=== PATIENT | female | born 1965 | race African-American/Black ===

== ENCOUNTER 2016-11-26 04:10 | Emergency (ER) | payer MEDICARE ==
[~2016-11-26] VITALS: Ht 170.2 cm; Wt 57.0 kg
[~2016-11-26 04:10] MED LIST: CLONIDINE; QUET25TA
[2016-11-26 05:45] VITALS: BP 119/72
== END 2016-11-26 11:03 | disposition home or self-care (01) ==
LOC: ER 04:13
DX: G89.29 Other chronic pain (principal); J45.909 Unspecified asthma, uncomplicated; Z59.0 Homelessness; Z88.0 Allergy status to penicillin
CPT/HCPCS: 99283

== ENCOUNTER 2016-11-30 00:01 | Emergency (ER) | payer MEDICARE ==
[~2016-11-30] VITALS: Ht 170.2 cm; Wt 57.0 kg
[2016-11-30] MEDS ORDERED: ACETAMINOPHEN WITH CODEINE 300/30MG TABLET PO ONE (03:00)
[2016-11-30 07:43] VITALS: BP 110/72
== END 2016-11-30 10:34 | disposition home or self-care (01) ==
LOC: ER 00:01
DX: M25.562 Pain in left knee (principal); Z59.0 Homelessness; Z88.0 Allergy status to penicillin; Z79.899 Other long term (current) drug therapy; F17.200 Nicotine dependence, unspecified, uncomplicated; M25.561 Pain in right knee; M25.552 Pain in left hip; M25.551 Pain in right hip
CPT/HCPCS: 99283

== ENCOUNTER 2016-12-23 00:06 | Emergency (ER) | payer MEDICARE ==
[~2016-12-23] VITALS: Ht 170.2 cm; Wt 56.0 kg
[2016-12-23] MEDS ORDERED: IBUPROFEN 800MG TABLET PO ONE (06:45)
[2016-12-23 09:10] VITALS: BP 138/79
== END 2016-12-23 10:03 | disposition home or self-care (01) ==
LOC: ER 00:06
DX: M25.552 Pain in left hip (principal); M25.561 Pain in right knee; M79.671 Pain in right foot; Z59.0 Homelessness; Z88.0 Allergy status to penicillin; R03.0 Elevated blood-pressure reading, without diagnosis of hypertension; F31.9 Bipolar disorder, unspecified; F20.9 Schizophrenia, unspecified; F17.210 Nicotine dependence, cigarettes, uncomplicated
CPT/HCPCS: 73502; 73562; 73630; 99284

== ENCOUNTER 2017-02-22 19:52 | Emergency (ER) | payer MEDICARE ==
[~2017-02-22] VITALS: Ht 170.2 cm; Wt 59.0 kg
[2017-02-23] MEDS ORDERED: IBUPROFEN 600MG TABLET PO ONE (04:45)
[2017-02-23 14:10] VITALS: BP 150/92
== END 2017-02-23 15:52 | disposition home or self-care (01) ==
LOC: ER 20:31
DX: F41.0 Panic disorder [episodic paroxysmal anxiety] (principal); M25.511 Pain in right shoulder; Z88.0 Allergy status to penicillin; F31.9 Bipolar disorder, unspecified; F17.200 Nicotine dependence, unspecified, uncomplicated
CPT/HCPCS: 73030; 73110; 99284

== ENCOUNTER 2017-06-23 02:09 | Emergency (ER) | payer MEDICARE ==
[~2017-06-23] VITALS: Ht 170.2 cm; Wt 56.0 kg
[2017-06-23 02:51] VITALS: BP 149/96
[2017-07-24] MEDS ORDERED: CLIN300C3 PO (12:05)
== END 2017-06-23 06:00 | disposition left against medical advice (07) ==
LOC: ER 03:09
DX: M79.662 Pain in left lower leg (principal); Z53.21 Procedure and treatment not carried out due to patient leaving prior to being seen by health care provider

== ENCOUNTER 2017-06-23 07:20 | Emergency (ER) | payer MEDICARE ==
[~2017-06-23] VITALS: Ht 170.2 cm; Wt 57.0 kg
[2017-06-23] MEDS ORDERED: TETANUS, DIPHTHERIA, PERTUSSIS VAC/PF 0.5ML (>7YR OLD) IM ONE (09:15)
[2017-06-23] MEDS ORDERED: IBUPROFEN 800MG TABLET PO ONE (09:15)
[2017-06-23] MEDS ORDERED: LIDOCAINE HCL 1% 20ML VIAL (Pyxis) INJ INFIL ONE (11:00)
[2017-06-23 12:04] VITALS: BP 149/93
[2017-07-24] MEDS ORDERED: CLIN300C3 PO (12:05)
== END 2017-06-23 12:31 | disposition home or self-care (01) ==
LOC: ER 08:02
DX: S80.02XA Contusion of left knee, initial encounter (principal); R03.0 Elevated blood-pressure reading, without diagnosis of hypertension; W10.1XXA Fall (on)(from) sidewalk curb, initial encounter; Y93.01 Activity, walking, marching and hiking; Y92.480 Sidewalk as the place of occurrence of the external cause; Z98.890 Other specified postprocedural states; Z23 Encounter for immunization; Z88.0 Allergy status to penicillin; Z72.0 Tobacco use; F41.9 Anxiety disorder, unspecified
CPT/HCPCS: 73562; 90471; 90715; 99284

== ENCOUNTER 2017-07-31 13:44 | Emergency (ER) | payer MEDICARE ==
[~2017-07-31] VITALS: Ht 165.1 cm; Wt 60.0 kg
[~2017-07-31 13:44] MED LIST changes: +CLIN300C3 PO
[2017-07-31 16:57] VITALS: BP 110/88
== END 2017-07-31 17:30 | disposition home or self-care (01) ==
LOC: ER 13:54
DX: L03.116 Cellulitis of left lower limb (principal); F41.9 Anxiety disorder, unspecified; F31.9 Bipolar disorder, unspecified; F17.200 Nicotine dependence, unspecified, uncomplicated; Z88.0 Allergy status to penicillin; Z88.8 Allergy status to other drugs, medicaments and biological substances
CPT/HCPCS: 73610; 99284

== ENCOUNTER 2017-08-22 00:38 | Emergency (ER) | payer MEDICARE ==
[~2017-08-22] VITALS: Ht 172.7 cm; Wt 58.0 kg
[2017-08-22] MEDS ORDERED: ACETAMINOPHEN 325MG TABLET PO ONE (06:15)
[2017-08-22] MEDS ORDERED: METOCLOPRAMIDE HCL 10MG TABLET PO ONE (06:30)
[2017-08-22 08:30] VITALS: BP 128/81
== END 2017-08-22 08:45 | disposition home or self-care (01) ==
LOC: ER 00:38
DX: L03.116 Cellulitis of left lower limb (principal); R51 Headache; F41.9 Anxiety disorder, unspecified; F17.200 Nicotine dependence, unspecified, uncomplicated; Z88.0 Allergy status to penicillin
CPT/HCPCS: 99283; J8597

== ENCOUNTER 2018-06-13 00:57 | Emergency (ER) | payer BC, MEDICARE ==
[~2018-06-13] VITALS: Ht 170.2 cm; Wt 73.0 kg
[2018-06-13] MEDS ORDERED: KETOROLAC 60MG/2ML VIAL IM STA (01:57)
[2018-06-13 03:51] LABS: BASOPHILS % 0.8 % (0.0-2.0); EOSINOPHILS % 0.6 % (0.0-5.0); HEMOGLOBIN. 12.1 g/dL (12.0-16.0); LYMPHOCYTES % 54.3 % (20.0-50.0); MEAN CORPUSCULAR HEMOGLOBIN 24.9 pg (28.0-32.0); MEAN PLATELET VOLUME 7.3 fl (7.4-10.4); MONOCYTES % 9.2 % (2.0-8.0); NEUTROPHILS % 35.1 % (40.0-76.0); PLATELET 204 x1000/uL (130-400); RED BLOOD CELL COUNT 4.87 mill/uL (4.2-5.4); RED CELL DISTRIBUTION WIDTH 14.4 % (11.6-14.6)
[2018-06-13 03:58] LABS: CHLORIDE 108 mEq/L (98-107)
[2018-06-13 04:03] LABS: ETHANOL BLOOD < 10 mg/dL
[2018-06-13 07:14] LABS: CLARITY URINE CLEAR (CLEAR); COLOR URINE YELLOW (YELLOW); KETONES URINE TRACE (NEGATIVE); LEUKOCYTE ESTERASE URINE NEGATIVE (NEGATIVE); NITRITE URINE NEGATIVE (NEGATIVE); OCCULT BLOOD URINE NEGATIVE (NEGATIVE); PROTEIN URINE NEGATIVE (NEGATIVE); SPECIFIC GRAVITY URINE 1.025 (1.005-1.030); UROBILINOGEN URINE 0.2 E.U./dL (0.2-1.0)
[2018-06-13 07:35] LABS: *AMPHETAMINES SCREEN URINE NEGATIVE (NEGATIVE)
[2018-06-13 07:37] LABS: *BARBITURATES SCREEN URINE NEGATIVE (NEGATIVE); *BENZODIAZEPINES SCREEN URINE NEGATIVE (NEGATIVE); *COCAINE SCREEN URINE NEGATIVE (NEGATIVE); CANNABINOID URINE SCREEN NEGATIVE (NEGATIVE); METHADONE URINE SCREEN NEGATIVE (NEGATIVE); OPIATES URINE SCREEN NEGATIVE (NEGATIVE); PHENCYCLIDINE URINE SCREEN NEGATIVE (NEGATIVE)
[2018-06-13 13:03] VITALS: BP 132/71
== END 2018-06-13 13:05 | disposition home or self-care (01) ==
LOC: ER 00:57
DX: S00.93XA Contusion of unspecified part of head, initial encounter (principal); M54.5 Low back pain; M25.561 Pain in right knee; G89.29 Other chronic pain; I10 Essential (primary) hypertension; F20.9 Schizophrenia, unspecified; F31.9 Bipolar disorder, unspecified; Z88.0 Allergy status to penicillin; Z88.6 Allergy status to analgesic agent; Z59.0 Homelessness; Y08.89XA Assault by other specified means, initial encounter; Y93.89 Activity, other specified; Y92.89 Other specified places as the place of occurrence of the external cause; Y99.8 Other external cause status
CPT/HCPCS: 36415; 80048; 80305; 80307; 80329; 81003; 85025; 96372; 99284; G0482; J1885

== ENCOUNTER 2018-06-29 23:41 | Emergency (ER) | payer BC ==
[~2018-06-29] VITALS: Ht 165.1 cm; Wt 53.0 kg
[2018-06-30 00:39] LABS: CLARITY URINE CLOUDY (CLEAR); COLOR URINE YELLOW (YELLOW); KETONES URINE NEGATIVE (NEGATIVE); LEUKOCYTE ESTERASE URINE TRACE (NEGATIVE); NITRITE URINE NEGATIVE (NEGATIVE); OCCULT BLOOD URINE NEGATIVE (NEGATIVE); PROTEIN URINE TRACE (NEGATIVE); SPECIFIC GRAVITY URINE 1.011 (1.005-1.030); UROBILINOGEN URINE 0.2 E.U./dL (0.2-1.0)
[2018-06-30] MEDS ORDERED: KETOROLAC 60MG/2ML VIAL IM ONE (02:00)
[2018-06-30] MEDS ORDERED: DIAZEPAM 5 MG TABLET PO ONE (04:00)
[2018-06-30] MEDS ORDERED: HYDROCODONE/ACETAMINOPHEN 5/325MG TABLET PO ONE (04:00)
[2018-06-30 07:26] VITALS: BP 114/79
== END 2018-06-30 07:36 | disposition home or self-care (01) ==
LOC: ER 23:41
DX: M54.5 Low back pain (principal); M79.605 Pain in left leg; F17.200 Nicotine dependence, unspecified, uncomplicated; Z88.0 Allergy status to penicillin; Z91.018 Allergy to other foods
CPT/HCPCS: 74176; 81003; 93971; 96372; 99285; J1885

== ENCOUNTER 2019-01-15 23:58 | Emergency (ER) | payer BC ==
[~2019-01-15] VITALS: Ht 172.7 cm; Wt 66.0 kg
[2019-01-16 04:53] LABS: CHLORIDE 109 mEq/L (98-107)
[2019-01-16 04:57] LABS: ETHANOL BLOOD < 10 mg/dL
[2019-01-16 06:15] VITALS: BP 139/89
[2019-01-16] MEDS ORDERED: IBUPROFEN 600MG TABLET PO ONE (06:15)
== END 2019-01-16 07:15 | disposition home or self-care (01) ==
LOC: ER 23:58
DX: G47.00 Insomnia, unspecified (principal); F41.9 Anxiety disorder, unspecified; F17.210 Nicotine dependence, cigarettes, uncomplicated; F31.9 Bipolar disorder, unspecified; Z88.0 Allergy status to penicillin; Z91.018 Allergy to other foods
CPT/HCPCS: 36415; 80048; 80320; 99283; G0480

== ENCOUNTER 2019-04-02 00:32 | Emergency (ER) | payer BC, OTHER ==
[~2019-04-02] VITALS: Ht 175.3 cm; Wt 59.0 kg
[2019-04-02] MEDS ORDERED: QUETIAPINE FUMARATE 50MG TABLET PO SCH (01:15)
[2019-04-02] MEDS ORDERED: NAPROXEN 375MG TABLET PO ONE (01:15)
[2019-04-02 16:39] VITALS: BP 115/80
== END 2019-04-02 16:41 | disposition home or self-care (01) ==
LOC: ER 00:32
DX: M54.5 Low back pain (principal); F31.9 Bipolar disorder, unspecified; Z88.0 Allergy status to penicillin
CPT/HCPCS: 99283

== ENCOUNTER 2019-07-20 17:41 | Emergency (ER) | payer BC, OTHER ==
[~2019-07-20] VITALS: Ht 175.3 cm; Wt 73.0 kg
[2019-07-20 22:15] VITALS: BP 134/84
== END 2019-07-20 22:16 | disposition home or self-care (01) ==
LOC: ER 17:41
DX: F10.129 Alcohol abuse with intoxication, unspecified (principal); F41.9 Anxiety disorder, unspecified; F31.9 Bipolar disorder, unspecified; M19.90 Unspecified osteoarthritis, unspecified site; Z79.899 Other long term (current) drug therapy; Z88.0 Allergy status to penicillin; Y90.9 Presence of alcohol in blood, level not specified
CPT/HCPCS: 36415; 80320; 99283; G0480

== ENCOUNTER 2019-12-02 12:46 | Emergency (ER) | payer BC, OTHER ==
[~2019-12-02] VITALS: Ht 171.4 cm; Wt 66.0 kg
[2019-12-02] MEDS ORDERED: QUET300T5 PO (13:16)
[2019-12-02 15:11] VITALS: BP 148/78
== END 2019-12-02 15:12 | disposition home or self-care (01) ==
LOC: ER 12:46
DX: Z76.0 Encounter for issue of repeat prescription (principal); I10 Essential (primary) hypertension; G47.00 Insomnia, unspecified; Z91.018 Allergy to other foods; Z88.0 Allergy status to penicillin; Z98.890 Other specified postprocedural states
CPT/HCPCS: 99281

== ENCOUNTER 2020-06-28 12:12 | Emergency (ER) | payer BC, OTHER ==
[~2020-06-28] VITALS: Ht 170.2 cm; Wt 65.0 kg
[~2020-06-28 12:12] MED LIST changes: -QUET25TA; +QUET300T5 PO
[2020-06-28 12:23] VITALS: BP 126/82
[2020-06-28] MEDS ORDERED: ONDANSETRON 4MG ODT PO STA (12:45)
[2020-06-28] MEDS ORDERED: ACETAMINOPHEN 325MG TABLET PO STA (12:45)
[2020-06-28] MEDS ORDERED: LORAZEPAM 1MG TABLET PO STA (12:45)
[2020-06-28 13:09] LABS: BASOPHILS % 0.7 % (0.0-2.0); EOSINOPHILS % 0.2 % (0.0-5.0); HEMATOCRIT. 36.5 % (36.0-48.0); HEMOGLOBIN. 11.8 g/dL (12.0-16.0); LYMPHOCYTES % 26.2 % (20.0-50.0); MEAN CORPUSCULAR HEMOGLOBIN 24.4 pg (28.0-32.0); MEAN CORPUSCULAR VOLUME 75.3 fL (81.0-99.0); MEAN PLATELET VOLUME 7.4 fl (7.4-10.4); MONOCYTES % 7.8 % (2.0-8.0); NEUTROPHILS % 65.1 % (40.0-76.0); PLATELET 249 x1000/uL (130-400); RED BLOOD CELL COUNT 4.84 mill/uL (4.2-5.4); RED CELL DISTRIBUTION WIDTH 14.5 % (11.6-14.6)
[2020-06-28 13:15] LABS: CHLORIDE 104 mEq/L (98-107)
[2020-06-28 13:24] LABS: ETHANOL BLOOD < 10 mg/dL
[2020-06-28 14:29] LABS: CLARITY URINE CLEAR (CLEAR); COLOR URINE YELLOW (YELLOW); KETONES URINE 1+ (NEGATIVE); LEUKOCYTE ESTERASE URINE NEGATIVE (NEGATIVE); NITRITE URINE NEGATIVE (NEGATIVE); OCCULT BLOOD URINE NEGATIVE (NEGATIVE); PH URINE 5.5 (4.5-8.0); PROTEIN URINE NEGATIVE (NEGATIVE)
[2020-06-28 14:43] LABS: *AMPHETAMINES SCREEN URINE NEGATIVE (NEGATIVE); *BENZODIAZEPINES SCREEN URINE NEGATIVE (NEGATIVE); *COCAINE SCREEN URINE NEGATIVE (NEGATIVE); METHADONE URINE SCREEN NEGATIVE (NEGATIVE); OPIATES URINE SCREEN NEGATIVE (NEGATIVE)
[2020-06-28 14:44] LABS: *BARBITURATES SCREEN URINE NEGATIVE (NEGATIVE); CANNABINOID URINE SCREEN NEGATIVE (NEGATIVE); PHENCYCLIDINE URINE SCREEN NEGATIVE (NEGATIVE)
== END 2020-06-28 17:07 | disposition home or self-care (01) ==
LOC: ER 12:12
DX: R51.9 Headache, unspecified (principal); F32.9 Major depressive disorder, single episode, unspecified; M79.10 Myalgia, unspecified site; Z59.0 Homelessness; I10 Essential (primary) hypertension; Z88.0 Allergy status to penicillin; Z88.8 Allergy status to other drugs, medicaments and biological substances
CPT/HCPCS: 36415; 71045; 80048; 80305; 80320; 81003; 85025; 99284; Q0162; G0480

== ENCOUNTER 2022-02-08 17:29 | Emergency (ER) | payer BC, MEDICAID ==
[~2022-02-08] VITALS: Ht 170.2 cm; Wt 62.0 kg
[2022-02-08 18:41] VITALS: BP 145/84
[2022-02-08] MEDS ORDERED: MORPHINE SULFATE 4 MG/ML CPJ (NOT FOR IM USE) IV ONE (22:00)
[2022-02-08 22:23] LABS: BASOPHILS % 0.3 % (0.0-2.0); EOSINOPHILS % 0.6 % (0.0-5.0); HEMATOCRIT. 33.5 % (36.0-48.0); HEMOGLOBIN. 10.8 g/dL (12.0-16.0); LYMPHOCYTES % 39.6 % (20.0-50.0); MEAN CORPUSCULAR HEMOGLOBIN 25.1 pg (28.0-32.0); MEAN CORPUSCULAR VOLUME 78.2 fL (81.0-99.0); MEAN PLATELET VOLUME 7.7 fl (7.4-10.4); MONOCYTES % 9.8 % (2.0-8.0); NEUTROPHILS % 49.7 % (40.0-76.0); PLATELET 240 x1000/uL (130-400); RED BLOOD CELL COUNT 4.29 mill/uL (4.2-5.4); RED CELL DISTRIBUTION WIDTH 14.2 % (11.6-14.6)
[2022-02-08 22:30] LABS: PROTHROMBIN TIME 11.1 sec (9.6-11.0)
[2022-02-08 22:35] LABS: CHLORIDE 107 mEq/L (98-107)
[2022-02-08] MEDS ORDERED: IBUP-2028 MT (23:38)
[2022-02-08] MEDS ORDERED: CLIN300C12 MT (23:38)
[2022-02-08] MEDS ORDERED: CLINDAMYCIN HCL 150MG CAPSULE PO ONE (23:45)
== END 2022-02-09 00:28 | disposition home or self-care (01) ==
LOC: ER 17:29
DX: L03.115 Cellulitis of right lower limb (principal); I10 Essential (primary) hypertension; Z86.718 Personal history of other venous thrombosis and embolism; Z98.890 Other specified postprocedural states; Z91.018 Allergy to other foods; Z88.0 Allergy status to penicillin
CPT/HCPCS: 36415; 71045; 80053; 83880; 84484; 85025; 85610; 86850; 86900; 86901; 93005; 93971; 96374; 99285; J2270

== ENCOUNTER 2024-11-09 01:24 | Emergency (ER) | payer BC, MEDICAID ==
[~2024-11-09] VITALS: Ht 167.6 cm; Wt 53.0 kg
[~2024-11-09 01:24] MED LIST changes: -CLIN300C3 PO; -CLONIDINE; +DIVA500T51 PO; +OMEP40CA20 MT; +QUET25TA36 PO
[2024-11-09 01:34] VITALS: O2SAT 98
[2024-11-09 03:38] LABS: CLARITY URINE CLOUDY (CLEAR); COLOR URINE DARK YELLOW (YELLOW); GLUCOSE URINE NEGATIVE (NEGATIVE); KETONES URINE NEGATIVE (NEGATIVE); LEUKOCYTE ESTERASE URINE TRACE (NEGATIVE); NITRITE URINE NEGATIVE (NEGATIVE); OCCULT BLOOD URINE NEGATIVE (NEGATIVE); PH URINE 5.5 (4.5-8.0); PROTEIN URINE TRACE (NEGATIVE); UROBILINOGEN URINE 0.2 E.U./dL (0.2-1.0)
[2024-11-09 03:39] LABS: *AMPHETAMINES SCREEN URINE NEGATIVE (NEGATIVE); *BARBITURATES SCREEN URINE NEGATIVE (NEGATIVE); *BENZODIAZEPINES SCREEN URINE NEGATIVE (NEGATIVE); *COCAINE SCREEN URINE NEGATIVE (NEGATIVE); CANNABINOID URINE SCREEN NEGATIVE (NEGATIVE); ECSTASY MDMA SCREEN URINE NEGATIVE (NEGATIVE); METHADONE URINE SCREEN NEGATIVE (NEGATIVE); OPIATES URINE SCREEN NEGATIVE (NEGATIVE); PHENCYCLIDINE URINE SCREEN NEGATIVE (NEGATIVE)
[2024-11-09 03:40] LABS: CHLORIDE 107 mEq/L (98-107); POTASSIUM 3.9 mEq/L (3.5-5.1); SODIUM 142 mEq/L (136-145)
[2024-11-09 03:41] LABS: CARBON DIOXIDE 26 mEq/L (21-32)
[2024-11-09 03:42] LABS: CALCIUM 9.7 mg/dL (8.7-10.4)
[2024-11-09 03:46] LABS: GLUCOSE 62 mg/dL (70-105); UREA NITROGEN BLOOD 20 mg/dL (9-23)
[2024-11-09 03:47] LABS: ETHANOL BLOOD 106 mg/dL (<10)
[2024-11-09 03:48] LABS: ACETAMINOPHEN < 2 ug/mL (10-30)
[2024-11-09 04:11] LABS: BASOPHILS % 0.6 % (0.0-2.0); DIFFERENTIAL COMMENT 0; EOSINOPHILS % 0.1 % (0.0-5.0); HEMATOCRIT. 32.9 % (36.0-48.0); HEMOGLOBIN. 10.6 g/dL (12.0-16.0); LYMPHOCYTES % 18.5 % (20.0-50.0); MEAN CORPUSCULAR HEMOGLOBIN 24.6 pg (28.0-32.0); MEAN CORPUSCULAR HGB CONC 32.1 g/dL (31.0-37.0); MEAN CORPUSCULAR VOLUME 76.6 fL (81.0-99.0); MEAN PLATELET VOLUME 7.7 fl (7.4-10.4); MONOCYTES % 8.7 % (2.0-8.0); NEUTROPHILS % 72.1 % (40.0-76.0); PLATELET 244 x1000/uL (130-400); RED CELL DISTRIBUTION WIDTH 14.7 % (11.6-14.6)
[2024-11-09 04:51] LABS: SQUAMOUS EPITHELIAL CELL URINE 1+ /lpf (RARE/1+)
[2024-11-09 04:55] LABS: BACTERIA URINE NONE SEEN; RBC URINE 0-2 /hpf (0-2); WBC URINE 0-2 /hpf (0-2)
[2024-11-09] MEDS: ACETAMINOPHEN 325MG TABLET PO ONE (06:49)
[2024-11-09] MEDS ORDERED: QUETIAPINE FUMARATE 50MG TABLET PO SCH (10:30)
[2024-11-09 10:39] VITALS: BP 129/78; PULSE 90; RESP 18; TEMP 36.3; O2SAT 98
== END 2024-11-09 11:02 ==
LOC: ER 01:24
DX: R45.851 Suicidal ideations (principal); F10.20 Alcohol dependence, uncomplicated; F31.9 Bipolar disorder, unspecified; I10 Essential (primary) hypertension; Z65.3 Problems related to other legal circumstances; Z79.899 Other long term (current) drug therapy; Z88.0 Allergy status to penicillin; Z20.822 Contact with and (suspected) exposure to COVID-19
CPT/HCPCS: 36415; 80048; 80305; 80307; 80320; 80329; 81003; 85025; 87426; 93005; 99285; G0480